=== PATIENT | male | born 1950 | race Two or more races ===

== ENCOUNTER 2017-12-22 06:47 | Inpatient (IN) | payer OTHER ==
[~2017-12-22] VITALS: Ht 170.2 cm; Wt 83.4 kg
[~2017-12-22 06:47] MED LIST: AMLO10TA2 PO; ASPI81TA27 PO; ATOR20TA PO; GLIP-116 PO; LISI40TA PO; METF-372 PO
[2017-12-22] MEDS ORDERED: IODIXANOL 320MG/ML 100ML BTL IV ONE (07:17)
[2017-12-22] MEDS ORDERED: ANGIOMAX 250 MG VIAL IV ONE (07:39)
[2017-12-22] MEDS ORDERED: SODIUM CHL 0.9% 50 ML ONE (07:39)
[2017-12-22] MEDS ORDERED: MIDAZOLAM HCL 1MG/1ML-2 ML VIAL ONE ×2 (07:39→09:47)
[2017-12-22] MEDS ORDERED: fentaNYL CITRATE 100 MCG/2 ML VL ONE (07:39)
[2017-12-22] MEDS ORDERED: LIDOCAINE HCL 2 %PF INJ 10ML AMP IJ ONE (07:45)
[2017-12-22] MEDS ORDERED: VERAPAMIL 2.5MG/ML INJ 2ML VIAL IV ONE (07:59)
[2017-12-22] MEDS ORDERED: HEPARIN SODIUM (PORCINE) 5000 UNITS/ML 1ML VIAL ONE (08:01)
[2017-12-22] MEDS ORDERED: HEPARIN 1,000 UNITS/ml 1ML VIAL ONE ×2 (08:03→08:04)
[2017-12-22] MEDS ORDERED: CLOPIDOGREL BISULFATE 75 MG TAB ONE (10:20)
[2017-12-22] MEDS ORDERED: SODIUM CHLORIDE 0.9% 1,000 ML IV SCH (10:49)
[2017-12-22] MEDS ORDERED: ONDANSETRON HCL 4 MG/2 ML VIAL IV PRN (11:00)
[2017-12-22] MEDS ORDERED: ACETAMINOPHEN 500 MG TAB PO PRN (11:00)
[2017-12-22] MEDS: SODIUM CHLOR 0.9% PF (SALINE LOCK) 10ML VIAL IV SCH (13:44)
[2017-12-22 17:00] VITALS: BP 141/78
[2017-12-22] MEDS: HYDROcodone-ACET 5/325MG TAB PO PRN (17:39)
[2017-12-22] MEDS ORDERED: ATORVASTATIN 20 MG TAB PO SCH (18:00)
[2017-12-22 21:43] VITALS: BP 141/75
[2017-12-23] MEDS: SODIUM CHLOR 0.9% PF (SALINE LOCK) 10ML VIAL IV SCH ×2 (01:11→06:25)
[2017-12-23 05:38] VITALS: BP 153/74
[2017-12-23] MEDS ORDERED: glipiZIDE 5 MG TAB PO SCH (07:00)
[2017-12-23] MEDS ORDERED: CLOP75TA28 PO (07:26)
[2017-12-23 08:00] VITALS: BP 141/105
[2017-12-23] MEDS: HYDROcodone-ACET 5/325MG TAB PO PRN (08:21)
[2017-12-23 09:00] VITALS: BP 141/105
[2017-12-23 09:55] VITALS: BP 141/105
[2017-12-23] MEDS ORDERED: PATIENTS OWN MEDICATION (Lisinopril 40 MG) PO SCH (10:00)
[2017-12-23] MEDS ORDERED: PATIENTS OWN MEDICATION (Glipizide 10 MG) PO SCH (10:00)
[2017-12-23] MEDS ORDERED: CLOPIDOGREL BISULFATE 75 MG TAB PO SCH (10:00)
[2017-12-23] MEDS ORDERED: ASPirin-EC 81 mg tab PO SCH (10:00)
[2017-12-23] MEDS ORDERED: amLODIPine BESYLATE 5 MG TAB PO SCH (10:00)
[2017-12-23] MEDS ORDERED: LISINOPRIL 20 MG TAB PO SCH (10:00)
[2017-12-23] MEDS ORDERED: PATIENTS OWN MEDICATION (Amlodipine Besylate 1 TAB) PO SCH (10:00)
== END 2017-12-23 12:00 | disposition home or self-care (01) | DRG 271 ==
LOC: CATH 06:47 → WEST WING 06:48
PROVIDERS: ADMIT Internal Medicine; ATTEND Internal Medicine
PROC: 047L3Z1 Dilation of Left Femoral Artery using Drug-Coated Balloon, Percutaneous Approach (ICD-10-PCS; principal; 2017-12-22)
PROC: 04CL3ZZ Extirpation of Matter from Left Femoral Artery, Percutaneous Approach (ICD-10-PCS; 2017-12-22)
PROC: B41G1ZZ Fluoroscopy of Left Lower Extremity Arteries using Low Osmolar Contrast (ICD-10-PCS; 2017-12-22)
PROC: B41F1ZZ Fluoroscopy of Right Lower Extremity Arteries using Low Osmolar Contrast (ICD-10-PCS; 2017-12-22)
DX: I70.92 Chronic total occlusion of artery of the extremities (principal); I74.3 Embolism and thrombosis of arteries of the lower extremities; E11.51 Type 2 diabetes mellitus with diabetic peripheral angiopathy without gangrene; I70.202 Unspecified atherosclerosis of native arteries of extremities, left leg; I10 Essential (primary) hypertension; Z87.891 Personal history of nicotine dependence
CPT/HCPCS: 37224; 37225; 75716; 82962; 99152; 99153; J2250; Q9967